=== PATIENT | female | born 1960 | race Caucasian/White ===

== ENCOUNTER 2022-08-13 11:52 | Outpatient (CLI) | payer OTHER, SELFPAY ==
[2022-08-13 10:09] LABS: Cholesterol* 196 mg/dL (90-199); Triglycerides* 223 mg/dL (40-149)
[2022-08-13 10:10] LABS: HDL Cholesterol* 41 mg/dL (>=50); LDL Cholesterol Calculated 110 mg/dL (<100)
[2022-08-13 20:33] LABS: Glucose* 113 mg/dL (60-115)
== END 2022-08-13 11:53 | disposition home or self-care (01) ==
PROVIDERS: PCP Internal Medicine; Visit Provider Internal Medicine
DX: Z00.00 Encounter for general adult medical examination without abnormal findings (principal); R73.03 Prediabetes; Z13.1 Encounter for screening for diabetes mellitus; Z13.6 Encounter for screening for cardiovascular disorders
CPT/HCPCS: 80061; 82947

== ENCOUNTER 2022-10-19 13:30 | Outpatient (CLI) | payer OTHER, SELFPAY ==
--- NOTE | 2022-10-19 13:40 | CRLHL7_ITS ---
For Patients: As a result of the Century Cures Act, medical imaging exams and procedure reports are released immediately into your electronic medical record. You may view this report before your referring provider. If you have questions, please contact your health care provider. BILATERAL SCREENING MAMMOGRAM WITH COMPUTER-AIDED DETECTION TECHNIQUE: CC and MLO views were obtained. These mammographic images have been obtained using full-field digital technique. These mammographic images were interpreted with the benefit of computer-aided detection. COMPARISON FILM: 03/19/21, 12/13/18, 06/11/16. FINDINGS: The breasts are almost entirely fatty IMPRESSION: There is no radiographic evidence for malignancy. ASSESSMENT: BI-RADS Category 1: Negative RECOMMENDATION: Routine screening mammogram in 1 year. A lay language report of this examination will be provided to the patient. Ab Sotelo M.D. Diagnostic Radiologist [email or web address] DEANA/Dictated by: Ab Sotelo MD @ 10/20/2022 8:38:00 AM (Electronically Signed)
== END 2022-10-19 13:31 | disposition home or self-care (01) ==
LOC: MAMMO 13:32
PROVIDERS: PCP Internal Medicine; Visit Provider Internal Medicine
DX: Z12.31 Encounter for screening mammogram for malignant neoplasm of breast (principal)
CPT/HCPCS: 77067

== ENCOUNTER 2023-09-16 07:35 | Outpatient (CLI) | payer OTHER, SELFPAY | END 2023-09-16 07:36 | disposition home or self-care (01) | LOC: NFLDREF 09-18 19:56 | PROVIDERS: Visit Provider Internal Medicine | DX: R73.03 Prediabetes (principal) | CPT/HCPCS: 82947 ==

== ENCOUNTER 2023-12-28 14:49 | Outpatient (CLI) | payer OTHER, SELFPAY ==
--- OUTSIDE RECORDS SUMMARY | 2023-12-28 14:52 | XMS_ITS ---
Author Name Unknown Organization [facility] Address [address] [place] [address] Care Team Providers Care Loading Shovel Oiler Name Role Phone Unavailable Unavailable Unavailable Surgery Details Not on file Complications Check Surgery Details section. Procedure Estimated Blood Loss Check Surgery Details section. Procedure Findings Check Surgery Details section. Procedure Specimens Taken Check Surgery Details section.
--- OUTSIDE RECORDS SUMMARY | 2023-12-28 14:52 | XMS_ITS | Clinical Summary ---
Author Name Unknown Organization [facility] Address [address] [place] [address] Care Team Providers Care Break Up Worker Name Role Phone Unavailable Primary Care Provider Unavailabl e Source Comments Patient records contain information from all sites at [facility]. For routine questions regarding patient records, call [phone] during business hours, M-F 8:00 AM - 5:00 PM Central Time. Record requests for emergency care only can be directed to [phone] at any time.[facility] Allergies No known active allergies Medications Medication Sig Dispensed Refills Start Date End Date Status albuterol (PROVENTIL HFA,VENTOLIN HFA) 90 mcg/actuation inhaler Inhale 2 puffs as needed. 0 Active fluticasone propionate (FLONASE) 50 mcg/actuation nasal spray Administer 1 spray into each nostril every morning. 0 Active mometasone (ASMANEX) 220 mcg/ actuation (14) inhaler Inhale 2 puffs 2 (two) times a day. Rinse mouth with water after use to reduce aftertaste and incidence of candidiasis. Do not swallow. 0 Active ibuprofen (ADVIL,MOTRIN) 200 mg tablet Take 200-400 mg by mouth as needed for pain. 0 Active cyanocobalamin (vitamin B-12) 1,000 mcg tablet Take 1,000 mcg by mouth once a week. 0 Active prednisoLONE acetate (PRED FORTE) 1 % ophthalmic suspension Into operative eye(s): 1 drop 3x day for 1 week 15 mL 0 11/01/2019 Active Additional Information Patient not taking.Reported on 12/11/2019 Active Problems Problem Noted Date Diagnosed Date Exotropia Alternating 07/19/2019 Overview: Added automatically from request for surgery [id number] Post Operative Nausea/Vomiting 11/29/2011 Overview: after eye surgery Asthma Encounters Date Type Department Care Team Description 09/28/2023 12:00 PM CDT - 09/28/2023 11:59 PM CDT Hospital Encounter Department of Laboratory Medicine and Pathology, [facility], in [place] [address] [place] [address] Mariano Young M.D. Clinical Research Exam Discharge Disposition: Home or Self Care 09/28/2023 11:30 AM CDT Office Visit Department of Neurology in [place] [address] [place] [address] Milagros Elizondo M.S.N., R.N., AGRICULTURAL ENGINEER-C Clinical Research Exam from Last 3 Months Social History Tobacco Use Types Packs/Day Years Used Date Smoking Tobacco: Never Smokeless Tobacco: Never Alcohol Use Standard Drinks/Week Comments Yes 1 (1 standard drink = 0.6 oz pur e alcohol) Social Connection and Isolat ion Panel [NHANES] Answer Date Recorded Frequency of Communication w ith Friends and Family Once a week 07/16/2019 Frequency of Social Gatherin gs with Friends and Family Once a week 07/16/2019 Attends Faith Services Never 07/16 Active Member of Clubs or Organizations Yes 07/16/2019 Attends Club or Organization Meetings More than 4 times per year 07/16/2019 Marital Status 07/16/2019 AUDIT-C Answer Date Recorded Frequency of Alcohol Consumption 2-4 times a wed07/16/2019 Average Number of Drinks 1 or 2 019 Frequency of Binge Drinking Never 06/29 Overall Financial Resource Strain (CARDIA) Answe r Date Recorded Difficulty of Paying Living Expenses Not very basurto rd 07/16/2019 [facility] [place] of Occupat ional Health - Occupational Stress Questionnaire Answer Date Recorded Feeling of Stress Only a little 07/16/2019 Exercise Vital Sign Answer Date Recorde d Days of Exercise per Week 4 days 2018 Minutes of Exercise per Session 40 min 07/16/2019 Hunger Vital Sign Answer Date Recorded Worried About Running Out of Food in the Last Ye ar Never true 07/16/2019 Ran Out of Food in the Last Year Never true 07/16/2019 PRAPARE - Transportation Answer Date Re corded Lack of Transportation (Medical) No 07/16/2019 Lack of Transportation (Non-Medical) No 07/16/2019 Nutrition Answer Date Recorded Nutrition: EVOO Fat Source Unknown 02/03 Nutrition: Servings of Fruits/Vegetables per Day Not on file 02/03/2021 Dental Answer Date Recorded Dental: Regular Dentist Unknown 02/05/20 21 Education Answer Date Recorded What is the highest level of school you have completed or the highest degree you have received? Professional school degree (e.g., MD, DDS, DVM, AMBER) 07/16/2019 Sex and Gender Information Value Date Recorded Sex Assigned at Female 10/30/2019 6:48 PM FRUIT AND VEGETABLE PACKER Gender Identity Female 07/16/2019 2:46 PM CDT Sexual Orientation Straight 07/16/2019 2: 46 PM CDT Last Filed Vital Signs Vital Sign Reading Time Taken Comments Blood Pressure 136/71 11/01/2019 6:15 PM FRUIT AND VEGETABLE PACKER Pulse 67 11/01/2019 6:35 PM FRUIT AND VEGETABLE PACKER Temperature 36.5 ??C (97.7 ??F) 11/01/2019 6:59 PM CS T Respiratory Rate 17 11/01/2019 5:45 PM FRUIT AND VEGETABLE PACKER Oxygen Saturation 97% 11/01/2019 6:35 PM FRUIT AND VEGETABLE PACKER Inhaled Oxygen Concentration - - Weight 71.8 kg (158 lb 4.6 oz) 11/01/2019 1:45 P M FRUIT AND VEGETABLE PACKER Height 156.5 cm (5' 1.61) 11/01/2019 1:45 PM CS T Body Mass Index 29.32 11/01/2019 1:45 PM FRUIT AND VEGETABLE PACKER Plan of Treatment Health Maintenance Due Date Last Done Comments CT Colonography 1959 Cologuard 1959 Colonoscopy 1959 Colorectal Cancer Screening 1959 FIT 1959 Fasting Glucose for Diabetes Screening 1959 HIV Screening 1959 Hepatitis C Screening 1959 Lipid (Cholesterol) Screening 1959 Mammogram 1959 Pneumococcal vaccine (0-64 y ears) (2 of 2 - PCV) 10/08/2015 10/08/2014 Depression Screening (Annual PHQ-2) 11/29/2023 Cervical Cancer Screening 02/26/2024 02/25/2021 DTaP,Tdap,and Td Vaccines (3 - Td or Tdap) 03/07/2028 03/07/2018, 11/17/2007 Zoster Vaccines Completed 11/21/2019, 08/01/2019 COVID-19 Vaccine Completed 09/20/2023, 09/2022, 03/16/2022, Additional history exists Influenza Vaccine Completed 09/20/2023, , 09/23/2021, Additional history exists Procedures Procedure Name Priority Date/Time Associated Diagnosis Comments [facility] [place], B Routine 09/28/2023 12:48 PM [facility] Clinical Research Exam from Last 3 Months Results * [facility] Research, Blood (09/28/2023 12:48 PM [facility]) Number of Specimens 1 09/28/2023 12:22 PM [facility] Blood (Blood, Venous) 09/28/2023 12:48 PM [facility] Mariano Young M.D. LAB RESEARCH NO RE SULT [facility] [address] [place] [address], [facility] [phone] [facility] [address] [place] [address] from Last 3 Months
--- OUTSIDE RECORDS SUMMARY | 2023-12-28 14:52 | XMS_ITS | Referral Summary ---
Author Name Unknown Organization [facility] Address [address] [place] [address] Care Team Providers Care Manager E Commerce Name Role Phone Unavailable Primary Care Provider Unavailabl e Source Comments Patient records contain information from all sites at [facility]. For routine questions regarding patient records, call [phone] during business hours, M-F 8:00 AM - 5:00 PM Central Time. Record requests for emergency care only can be directed to [phone] at any time.[facility] Encounters Date Type Department Care Team Description 09/28/2023 12:00 PM CDT - 09/28/2023 11:59 PM CDT Hospital Encounter Department of Laboratory Medicine and Pathology, [facility], in [place] [address] [place] [address] Mariano Young M.D. Clinical Research Exam Discharge Disposition: Home or Self Care 09/28/2023 11:30 AM CDT Office Visit Department of Neurology in [place] [address] [place] [address] Milagros Elizondo M.S.N., R.N., CANE FLUME CHUTE OPERATOR-C Clinical Research Exam from Last 3 Months Allergies No known active allergies Medications Medication [...] Overview: Added automatically from request for surgery [id number] Post Operative Nausea/Vomiting 11/29/2011 Overview: after eye surgery Asthma Social History Tobacco Use Types Packs/Day Years [...] and Family Once a week 07/16/2019 Attends Evangelical Services Never 07/16 Active Member of Clubs [...] Living Expenses Not very bas[address] 07/16/2019 [facility] [place] of Occupat ional Health - Occupational Stress [...] Sex Assigned at Female 10/30/2019 6:48 PM STRINGING MACHINE OPERATOR Gender Identity Female 07/16/2019 2:46 PM CDT Sexual Orientation Straight 07/16/2019 2: 46 PM CDT Last Filed Vital Signs Vital Sign Reading Time Taken Comments Blood Pressure 136/71 11/01/2019 6:15 PM STRINGING MACHINE OPERATOR Pulse 67 11/01/2019 6:35 PM STRINGING MACHINE OPERATOR Temperature 36.5 ??C (97.7 ??F) 11/01/2019 6:59 PM CS T Respiratory Rate 17 11/01/2019 5:45 PM STRINGING MACHINE OPERATOR Oxygen Saturation 97% 11/01/2019 6:35 PM STRINGING MACHINE OPERATOR Inhaled Oxygen Concentration - - Weight 71.8 kg (158 lb 4.6 oz) 11/01/2019 1:45 P M STRINGING MACHINE OPERATOR Height 156.5 cm (5' 1.61) 11/01/2019 1:45 PM CS T Body Mass Index 29.32 11/01/2019 1:45 PM STRINGING MACHINE OPERATOR Plan of Treatment Not on file Procedures Procedure Name Priority Date/Time Associated Diagnosis Comments [facility] [place], B Routine 09/28/2023 12:48 PM [facility] Clinical Research Exam from Last 3 Months Results * [facility] Research, Blood (09/28/2023 12:48 PM [facility]) Number of Specimens 1 09/28/2023 12:22 PM [facility] Blood (Blood, Venous) 09/28/2023 12:48 PM [facility] Mariano Young M.D. LAB RESEARCH NO NEEL [facility] [address] [place] [address], [facility] [phone] [facility] [address] [place] [address] from Last 3 Months
--- OUTSIDE RECORDS SUMMARY | 2023-12-28 14:52 | XMS_ITS | Encounter Summary ---
Author Name Unknown Organization [facility] Address [address] [place] [address] Care Team Providers Care Drawbridge Operator Name Role Phone Unavailable Primary Care Provider Unavailabl e Reason for Visit * Outpatient (Routine) - Closed Specialty Diagnoses / Procedures Referred By Contac t Referred To Contact Neurology Diagnoses Clinical Research Exam Mariano Young M.D. [address] [place] [address] Milagros Elizondo M.SJenna, R.N., TOY TRAINS AND ACCESSORIES SALESPERSON-C [address] [place] [address] Referral ID Status Reason Start Date Expiration Date Visits Re quested Visits Authorized [id number] Closed 07/08/2023 07/07/2026 1 1 Encounter Details Date Type Department Care Team (Late st Contact Info) Description 09/28/2023 11:30 AM CDT Office Visit Department of Neurology in [place], [place] [address] [place] [address] Milagros Elizondo M.SNikoleNNikole, R.N., TOY TRAINS AND ACCESSORIES SALESPERSON-C [address] [place] [address] Clinical Research Exam Social History Tobacco Use Types Packs/Day Years [...] and Family Once a week 07/16/2019 Attends Shinto Services Never 07/16 Active Member of Clubs [...] Living Expenses Not very bas[address] 07/16/2019 [facility] of Occupat ional Health - Occupational Stress [...] Sex Assigned at Female 10/30/2019 6:48 PM FBI SHARPSHOOTER Gender Identity Female 07/16/2019 2:46 PM CDT Sexual Orientation Straight 07/16/2019 2: 46 PM CDT documented as of this encounter Plan of Treatment Not on file documented as of this encounter Visit Diagnoses Diagnosis Clinical Research Exam documented in this encounter
--- OUTSIDE RECORDS SUMMARY | 2023-12-28 14:52 | XMS_ITS | Clinical Summary ---
Author Name Unknown Organization [facility] Address [place], [place] [address] Care Team Providers Care Freight Car Repairer Name Role Phone Pcp, No Primary Care Provider Unavailabl e Allergies No known active allergies Medications Medication Sig Dispensed Refills Start Date End Date Status MULTIVITAMIN TAB take 1 tablet by oral route once daily with food 0 11/17/2007 Active cholecalciferol (VITAMIN D) 1,000 unit tablet Take 1 tablet by mouth once daily. 0 07/31/2011 Active omega-3 fatty acids-vitamin E (FISH OIL) 1,000 mg Cap Take by mouth. 0 07/31/2011 Act halima albuterol (PROVENTIL; VENTOLIN) 90 mcg/actuation inhaler Inhale 2 Puffs by mouth every 4 hours if needed for Wheezing. 1 Inhaler 3 04/08/2012 Active fluticasone (50 mcg per actuation) nasal solution (FLONASE) 1-2 sprays in each nostril daily 1 Bottle 11 11/08/2013 Active FLOVENT HFA 110 mcg/actuation inhalerIndications:As thma, mild persistent INHALE 1-2 PUFFS BY MOUTH 2 TIMES DAILY. 12 g 0 11/25/2013 Active Active Problems Problem Noted Date Diagnosed Date Urinary, incontinence, stress female 03/02/2013 Strabismus 04/08/2012 Actinic keratoses 12/15/2011 History of melanoma 12/15/2011 Overview: left leg, age 17 Screen for colon cancer 04/10/2010 Overview: Colonoscopy 03/2010 normal repeat in 10 years Vitamin D deficiency 03/14/2010 Asthma, mild persistent Allergic rhinitis, cause unspecified Immunizations Name Administration Dates Next Due Influenza, IIV3 (Age >=3 years) 11/25/2013,12/23,07/31/2011,11/17/2007 Td (Age >=7 Years) 08/24/1996 Tdap 11/17/2007 Family History Medical History Relation Name Comments Other Father alzheimers Diabetes Mother pre diabetes Stroke Mother TIA Cancer Other grandfather--pe rhaps liver Relation Name Status Comments Father (Age 78) alzheimers Mother Alive Other Social History Tobacco Use Types Packs/Day Years Used Date Smoking Tobacco: Never Smokeless Tobacco: Never Tobacco Cessation:Counseling Given: Yes Alcohol Use Standard Drinks/Week Comments Yes 0 (1 standard drink = 0.6 oz pur e alcohol) occas Social Connections Answer Date Recorded Frequency of Communication with Friends and Fami ly Not on file 11/25/2021 Financial Resource Strain Answer Date R ecorded Difficulty of Paying Living Expenses Not on file 11/25/2021 Difficulty of Paying Living Expenses Not on file 11/25/2021 Sex and Gender Information Value Date Recorded Sex Assigned at Not on file Gender Identity Not on file Sexual Orientation Not on file Obstetrics History Last Filed Vital Signs Vital Sign Reading Time Taken Comments Blood Pressure 122/76 03/02/2013 1:02 PM CDT tow er Pulse 87 03/02/2013 1:02 PM CDT Temperature 36.7 ??C (98 ??F) 12/23/2012 12:37 PM GASKET NOTCHER Respiratory Rate - - Oxygen Saturation 100% 12/23/2012 12:37 PM GASKET NOTCHER Inhaled Oxygen Concentration - - Weight 79.4 kg (175 lb) 03/02/2013 1:02 PM CDT Height 155.5 cm (5' 1.22) 04/08/2012 3:38 PM CD T Body Mass Index 32.83 04/08/2012 3:38 PM CDT Plan of Treatment Health Maintenance Due Date Last Done Comments COVID-19 vaccine series (#1) 1959 Depression screening for age 12+ 1971 HIV for age 15-65 1974 BMI (ht and wt on same day) for age 18+ 1977 Hepatitis C screening for age 18-79 1977 Zoster (shingles) series for age 50+ (1 of 2) 2009 Mammogram for age 45-75 12/26/2013 12/26/19 13, 08/11/2011, 03/20/2010, Additional history exists Lipids for age 45-75 08/12/2016 08/12/2011, 03/13/2010, 11/25/2007 Tetanus booster 11/17/2017 11/17/2007, 08/24/1996 Colonoscopy through age 75 04/10/202004/10, 04/10/2010, 04/10/2010 Influenza for age 50-64 07/30/2023 11/25/20 13, 12/23/2012, 07/31/2011, Additional history exists Pap test for age 21-65 02/26/2024 , 02/25/2021, 10/08/2014, Additional history exists Tdap Completed 11/17/2007 Pneumococcal series for age 6-64 Aged Out No longer eligible based on patient's age to complete this topic Care Teams Freight Car Repairer Relationship Specialty Start Date End Date Pcp, No . PCP - General 12/25/13
--- OUTSIDE RECORDS SUMMARY | 2023-12-28 14:52 | XMS_ITS | Encounter Summary ---
Author Name Unknown Organization [facility] Address [address] [place] [address] Care Team Providers Care Community Education Specialist Name Role Phone Unavailable Primary Care Provider Unavailabl e Encounter Details Date Type Department Care Team (Latest Contact Info) Description 09/28/2023 12:00 PM CDT - 09/28/2023 11:59 PM CDT Hospital Encounter Department of Laboratory Medicine and Pathology, [facility], in [place], [place] [address] [place] [address] Mariano Young M.D. [address] [place] [address] Clinical Research Exam Discharge Disposition: Home or Self Care Social History Tobacco Use Types Packs/Day Years [...] and Family Once a week 07/16/2019 Attends Sabianism Services Never 07/16 Active Member of Clubs [...] Living Expenses Not very bas[address] 07/16/2019 [facility] [place] of Occupat ional Health - Occupational Stress [...] Sex Assigned at Female 10/30/2019 6:48 PM PATIENT EXPERIENCE COORDINATOR Gender Identity Female 07/16/2019 2:46 PM CDT Sexual Orientation Straight 07/16/2019 2: 46 PM CDT documented as of this encounter Medications at Time of Discharge Medication Sig Dispensed Refills Start Date End Date albuterol (PROVENTIL HFA,VENTOLIN HFA) 90 mcg/actuation inhaler Inhale 2 puffs as needed. 0 cyanocobalamin (vitamin B-12) 1,000 mcg tablet Take 1,000 mcg by mouth once a week. 0 fluticasone propionate (FLONASE) 50 mcg/actuation nasal spray Administer 1 spray into each nostril every morning. 0 ibuprofen (ADVIL,MOTRIN) 200 mg tablet Take 200-400 mg by mouth as needed for pain. 0 mometasone (ASMANEX) 220 mcg/ actuation (14) inhaler Inhale 2 puffs 2 (two) times a day. Rinse mouth with water after use to reduce aftertaste and incidence of candidiasis. Do not swallow. 0 prednisoLONE acetate (PRED FORTE) 1 % ophthalmic suspension Into operative eye(s): 1 drop 3x day for 1 week 15 mL 0 11/01/2019 documented as of this encounter Plan of Treatment Not on file documented as of this encounter Procedures Procedure Name Priority Date/Time Associated Diagnosis Comments [facility] RESEARCH ORDER, B Routine 09/28/2023 12:48 PM [facility] Clinical Research Exam documented in this encounter Results * [facility] Research, Blood (09/28/2023 12:48 PM [facility]) Number of Specimens 1 09/28/2023 12:22 PM [facility] Blood (Blood, Venous) 09/28/2023 12:48 PM [facility] Mariano Young M.D. LAB RESEARCH NO RE SULT ROUTING [facility] [address] [place] [address], [facility] [phone] [facility] [address] [place] [address] documented in this encounter Visit Diagnoses Diagnosis Clinical Research Exam documented in this encounter
--- OUTSIDE RECORDS SUMMARY | 2023-12-28 14:52 | XMS_ITS | Encounter Summary ---
Author Name Unknown Organization [facility] Address [address] [place] [address] Care Team Providers Care Elastic Yarn Twister Name Role Phone Unavailable Primary Care Provider Unavailabl e Encounter Details Date Type Department Care Team (Late st Contact Info) Description 02/05/2017 Historical Ophthalmology [facility] Prasanna Prater M.D. [address] [place] [address] Social History Tobacco Use Types Packs/Day Years Used Date Smoking Tobacco: Never Assessed Sex and Gender Information Value Date Recorded Sex Assigned at Female 10/30/2019 6:48 PM CAN CARRIER Gender Identity Female 07/16/2019 2:46 PM CDT Sexual Orientation Straight 07/16/2019 2: 46 PM CDT documented as of this encounter Progress Notes * Prasanna Prater M.D. - 02/05/2017 8:19 AM CST Eye General CHIEF COMPLAINT right eye wandering out HISTORY OF PRESENT ILLNESS 56 year old female here for right eye wandering out, has had 4 previous muscle surgeries, last one being in 2011. Double vision, constant, even with prism in glasses, images side by side, right imageslightly lower. Vision is more blurry in right eye. Closing one eye vision is single. She gets headaches from clenching jaw. AK: history of 4 strabismus surgeries. First surgery was in [place] at age 1, at age 3 and 5 patient had 2 strabismus surgeries in [place], [place]. EDB: The last strabismus surgery 03/2012 with Angeline Azevedo at [facility] for a 5-7 year esotropia shift. Exotropia happened soon after adjustable suture and healing and has stayed that way. Double vision is present most all the time and even in prism however with effort, fusion is obtained. With the current setting, double vision is being managed but is not ideal. IMPRESSION / REPORT / PLAN #1 Consecutive Exotropia s/p strabismus surgery at age 1 in [facility] s/p strabismus surgery at age 3 and 5 in [place] s/p strabismus surgery 2012-Dr. Azevedo [facility] It is difficult to determine the location of the muscles on the right eye. I do believe the left lateral remains recessed. The limited adduction in both eyes suggest either abnormality in the insertion of the medial rectus muscles or some restriction to the laterals. I discussed the current condition with Mrs. Costa and the option for more surgery either now or in the future. I would suspect a unilateral or bilateral medial rectus advancement is warranted. One option is to only approach theleft medial, potentially coming back on the right eye if it recurred again. The reason that is attractive is to not disrupt the scar tissue that is worse on the right eye from prior surgery. In either case, I do think that strabismus surgery could play a role but might consider watching the currentsituation longer. Mrs. Costa seems satisfied with that approach and will likely proceed with surgery if the angle of deviation gets more. I discussed the benefits, risks, and alternatives to strabismus surgery for the patient. The indications and benefits included the hope for improved binocularity and motor alignment. The risks included continued strabismus and need for more surgery (approximately 1 in 4 (25%)), diplopia (in primaryor other gazes), difficulties in healing including bleeding, infection and inflammation, and remotechange of severe injury to the eye or health. Risk of vision loss shared at 1 in 5,000. The typicalsurgery day schedule and postop expectations were shared. Follow up was suggested in 6 - 12 months to assess stability. Monitor the patient's vision and eye alignment and appearance until the next clinic visit. If new concerns arise please contact the [facility] Department of Ophthalmology to discuss the situation ormove up the return appointment. DIAGNOSIS #1 Consecutive Exotropia CDM Reports - EYEGEN Id: [id number] Status: Fnl documented in this encounter Plan of Treatment Not on file documented as of this encounter Visit Diagnoses Not on filedocumented in this encounter
--- NOTE | 2023-12-28 15:00 | CRLHL7_ITS ---
For Patients: As a result of the Century Cures Act, medical imaging exams and procedure reports are released immediately into your electronic medical record. You may view this report before your referring provider. If you have questions, please contact your health care provider. BILATERAL SCREENING MAMMOGRAM WITH COMPUTER-AIDED DETECTION AND TOMOSYNTHESIS TECHNIQUE: CC and MLO views were obtained. These mammographic images have been obtained using full-field digital technique. These mammographic images were interpreted with the benefit of computer-aided detection. Breast Tomosynthesis was used in this interpretation. COMPARISON FILM: 10/19/22, 03/19/21, 12/13/18. FINDINGS: There are scattered areas of fibroglandular density. IMPRESSION: There is no radiographic evidence for malignancy. ASSESSMENT: BI-RADS Category 1: Negative RECOMMENDATION: Routine screening mammogram in 1 year. A lay language report of this examination will be provided to the patient. Ab Sotelo M.D. Diagnostic Radiologist [email or web address] SP/Dictated by: Ab Sotelo MD @ 12/29/2023 1:43:00 PM (Electronically Signed)
== END 2023-12-28 14:50 | disposition home or self-care (01) ==
LOC: MAMMO 14:50
PROVIDERS: Visit Provider Internal Medicine
DX: Z12.31 Encounter for screening mammogram for malignant neoplasm of breast (principal)
CPT/HCPCS: 77063; 77067

== ENCOUNTER 2024-01-06 10:36 | Outpatient (CLI) | payer OTHER, SELFPAY ==
--- OUTSIDE RECORDS SUMMARY | 2024-01-06 10:39 | XMS_ITS | Encounter Summary ---
Author Name Unknown Organization [facility] Address [address] [place] [address] Care Team Providers Care Electrotype Servicer Name Role Phone Unavailable Primary Care Provider Unavailabl e Encounter Details Date Type Department Care Team (Latest Contact Info) Description 09/28/2023 12:00 PM CDT - 09/28/2023 11:59 PM CDT Hospital Encounter Department of Laboratory Medicine and Pathology, [facility], in [place], [place] [address] [place] [address] Mariano Young M.D. [address] [place] [address] Clinical Research Exam Discharge Disposition: [...] and Family Once a week 07/16/2019 Attends Gnosticist Services Never 07/16 Active Member of Clubs [...] Living Expenses Not very [address] 07/16/2019 [facility] of Occupat ional Health - Occupational Stress [...] Sex Assigned at Female 10/30/2019 6:48 PM SURVEYING TEACHER Gender Identity Female 07/16/2019 2:46 PM CDT [...] Procedure Name Priority Date/Time Associated Diagnosis Comments [facility] RESE[facility] ORDER, B Routine 09/28/2023 12:48 PM [facility] Clinical Research Exam documented in this encounter Results * [facility] Research, Blood (09/28/2023 12:48 PM [facility]) Number of Specimens 1 09/28/2023 12:22 PM [facility] Blood (Blood, Venous) 09/28/2023 12:48 PM [facility] Mariano Young M.D. LAB RESEARCH NO RE SULT ROUTING [facility] [address] [place] [address], [facility] [phone] [facility] [address] [place] [address] documented in this encounter Visit Diagnoses Diagnosis Clinical Research Exam documented in this encounter
--- OUTSIDE RECORDS SUMMARY | 2024-01-06 10:39 | XMS_ITS | Encounter Summary ---
Author Name Unknown Organization [facility] Address [address] [place] [address] Care Team Providers Care Safety Director Name Role Phone Unavailable Primary Care Provider Unavailabl e Encounter Details Date Type Department Care Team (Late st Contact Info) Description 02/05/2017 Historical Ophthalmology RST OPH Prasanna Prater M.D. [address] [place] [address] Social History Tobacco Use Types Packs/Day Years Used Date Smoking Tobacco: Never Assessed Sex and Gender Information Value Date Recorded Sex Assigned at Female 10/30/2019 6:48 PM DIVERSITY SPECIALIST Gender Identity Female 07/16/2019 2:46 PM CDT [...] 6 patient had 2 strabismus surgeries in [place], [place]. EDB: The last strabismus surgery 03/2012 with Angeline Azevedo at [facility] for a 5-7 year esotropia shift. Exotropia [...] s/p strabismus surgery at age 1 in [facility] s/p strabismus surgery at age 3 and 5 in [place] s/p strabismus surgery 2012-Dr. Azevedo [facility] It is difficult to determine the location [...] If new concerns arise please contact the [facility] Department of Ophthalmology to discuss the situation ormove up the return appointment. DIAGNOSIS #1 Consecutive Exotropia CDM Reports - EYEGEN Id: [id number] Status: Fnl documented in this encounter Plan of Treatment Not on file documented as of this encounter Visit Diagnoses Not on filedocumented in this encounter
--- OUTSIDE RECORDS SUMMARY | 2024-01-06 10:39 | XMS_ITS | Referral Summary ---
Author Name Unknown Organization [facility] Address [address] [place] [address] Care Team Providers Care Firmware Developer Name Role Phone Unavailable Primary Care Provider Unavailabl e Source Comments Patient records contain information from all sites at [facility]. For routine questions regarding patient records, call [phone] during business hours, M-F 8:00 AM - 5:00 PM Central Time. Record requests for emergency care only can be directed to [phone] at any time.[facility] Allergies No known active allergies Medications Medication [...] Overview: Added automatically from request for surgery [id number] Post Operative Nausea/Vomiting 11/29/2011 Overview: after eye [...] and Family Once a week 07/16/2019 Attends Congregational Services Never 07/16 Active Member of Clubs [...] Living Expenses Not very [address] 07/16/2019 [facility] [place] of Occupat ional Health - Occupational Stress [...] Sex Assigned at Female 10/30/2019 6:48 PM FISCAL ACCOUNTANT Gender Identity Female 07/16/2019 2:46 PM CDT Sexual Orientation Straight 07/16/2019 2: 46 PM CDT Last Filed Vital Signs Vital Sign Reading Time Taken Comments Blood Pressure 136/71 11/01/2019 6:15 PM FISCAL ACCOUNTANT Pulse 67 11/01/2019 6:35 PM FISCAL ACCOUNTANT Temperature 36.5 ??C (97.7 ??F) 11/01/2019 6:59 PM CS T Respiratory Rate 17 11/01/2019 5:45 PM FISCAL ACCOUNTANT Oxygen Saturation 97% 11/01/2019 6:35 PM FISCAL ACCOUNTANT Inhaled Oxygen Concentration - - Weight 71.8 kg (158 lb 4.6 oz) 11/01/2019 1:45 P M FISCAL ACCOUNTANT Height 156.5 cm (5' 1.61) 11/01/2019 1:45 PM CS T Body Mass Index 29.32 11/01/2019 1:45 PM FISCAL ACCOUNTANT Plan of Treatment Not on file
--- OUTSIDE RECORDS SUMMARY | 2024-01-06 10:39 | XMS_ITS | Clinical Summary ---
Author Name Unknown Organization [facility] Address [place], [place] [address] Care Team Providers Care Test Desk Trouble Locator Name Role Phone Pcp, No Primary Care [...] 36.7 ??C (98 ??F) 12/23/2012 12:37 PM GROUP LEADER SEMICONDUCTOR TESTING Respiratory Rate - - Oxygen Saturation 100% 12/23/2012 12:37 PM GROUP LEADER SEMICONDUCTOR TESTING Inhaled Oxygen Concentration - - Weight 79.4 [...] age to complete this topic Care Teams Test Desk Trouble Locator Relationship Specialty Start Date End Date Pcp, No . PCP - General 12/25/13
--- OUTSIDE RECORDS SUMMARY | 2024-01-06 10:39 | XMS_ITS | Encounter Summary ---
Author Name Unknown Organization [facility] Address [address] [place] [address] Care Team Providers Care Bariatric Surgeon Name Role Phone Unavailable Primary Care Provider Unavailabl e Reason for Visit * Outpatient (Routine) - Closed Specialty Diagnoses / Procedures Referred By Contac t Referred To Contact Neurology Diagnoses Clinical Research Exam Mariano Young M.D. [address] [place] [address] Milagros Elizondo M.SJenan, R.N., GEAR NICKER-C [address] [place] [address] Referral ID Status Reason Start Date Expiration Date Visits Re quested Visits Authorized [id number] Closed 07/08/2023 07/07/2026 1 1 Encounter Details Date Type Department Care Team (Late st Contact Info) Description 09/28/2023 11:30 AM CDT Office Visit Department of Neurology in [place], [place] [address] [place] [address] Milagros Elizondo M.SNikoleNNikole, R.N., GEAR NICKER-C [address] [place] [address] Clinical Research Exam Social History [...] and Family Once a week 07/16/2019 Attends Hoahaoism Services Never 07/16 Active Member of Clubs [...] Living Expenses Not very [address] 07/16/2019 [facility] of Occupat ional Health - Occupational [...] Sex Assigned at Female 10/30/2019 6:48 PM RAILROAD HAND Gender Identity Female 07/16/2019 2:46 PM CDT Sexual Orientation Straight 07/16/2019 2: 46 PM CDT documented as of this encounter Plan of Treatment Not on file documented as of this encounter Visit Diagnoses Diagnosis Clinical Research Exam documented in this encounter
--- OUTSIDE RECORDS SUMMARY | 2024-01-06 10:39 | XMS_ITS ---
Author Name Unknown Organization [facility] Address [address] [place] [address] Care Team Providers Care Junior Account Manager Name Role Phone Unavailable Unavailable Unavailable Surgery Details Not on file Complications Check Surgery Details section. Procedure Estimated Blood Loss Check Surgery Details section. Procedure Findings Check Surgery Details section. Procedure Specimens Taken Check Surgery Details section.
--- OUTSIDE RECORDS SUMMARY | 2024-01-06 10:39 | XMS_ITS | Clinical Summary ---
Author Name Unknown Organization [facility] Address [address] [place] [address] Care Team Providers Care Scrubbing Machine Operator Name Role Phone Unavailable Primary Care Provider Unavailabl e Source Comments Patient records contain information from all sites at [facility]. For routine questions regarding patient records, call [phone] during business hours, M-F 8:00 AM - 5:00 PM Central Time. Record requests for emergency care only can be directed to [phone] at any time.[facility] Allergies No known active allergies Medications [...] Overview: Added automatically from request for surgery [id number] Post Operative Nausea/Vomiting 11/29/2011 Overview: after eye [...] and Family Once a week 07/16/2019 Attends Latter-Day Services Never 07/16 Active Member of Clubs [...] Living Expenses Not very [address] 07/16/2019 [facility] of Occupat ional Health - Occupational Stress [...] Sex Assigned at Female 10/30/2019 6:48 PM CASTING REPAIRER Gender Identity Female 07/16/2019 2:46 PM CDT Sexual Orientation Straight 07/16/2019 2: 46 PM CDT Last Filed Vital Signs Vital Sign Reading Time Taken Comments Blood Pressure 136/71 11/01/2019 6:15 PM CASTING REPAIRER Pulse 67 11/01/2019 6:35 PM CASTING REPAIRER Temperature 36.5 ??C (97.7 ??F) 11/01/2019 6:59 PM CS T Respiratory Rate 17 11/01/2019 5:45 PM CASTING REPAIRER Oxygen Saturation 97% 11/01/2019 6:35 PM CASTING REPAIRER Inhaled Oxygen Concentration - - Weight 71.8 kg (158 lb 4.6 oz) 11/01/2019 1:45 P M CASTING REPAIRER Height 156.5 cm (5' 1.61) 11/01/2019 1:45 PM CS T Body Mass Index 29.32 11/01/2019 1:45 PM CASTING REPAIRER Plan of Treatment Health Maintenance Due Date [...]
== END 2024-01-06 10:37 | disposition home or self-care (01) ==
LOC: NFLDREF 10:37
PROVIDERS: PCP Internal Medicine; Visit Provider Internal Medicine
DX: R20.2 Paresthesia of skin (principal); R73.03 Prediabetes
CPT/HCPCS: 82607

== ENCOUNTER 2024-11-03 07:46 | Outpatient (CLI) | payer MEDICARE, BC, SELFPAY ==
--- OUTSIDE RECORDS SUMMARY | 2024-11-07 08:21 | XMS_ITS | Encounter Summary ---
Author Organization [facility] Address [address] [place] [address] Care Team Providers Care Mission Coordinator Name Role Phone Unavailable Primary Care Provider Unavailabl e Encounter Details Date Type Department Care Team (Late st Contact Info) Description 02/05/2017 Historical Ophthalmology RST OPH Prasanna Prater M.D. [address] [place] [address] Social History Tobacco Use Types Packs/Day Years Used Date Smoking Tobacco: Never Assessed Comments Unknown Sex and Gender Information Value Date Recorded Sex Assigned at Female 10/30/2019 6:48 PM AIRPLANE PATROLLER Legal Sex Female 8:10 AM AIRPLANE PATROLLER Gender Identity Female 07/16/2019 2:46 PM CDT [...] 6 patient had 2 strabismus surgeries in [place], [place]. EDB: The last strabismus surgery 03/2012 with Angeline Azevedo at [facility] for a 5-7 year esotropia shift. Exotropia [...] s/p strabismus surgery at age 1 in [facility] s/p strabismus surgery at age 3 and 5 in [place] s/p strabismus surgery 2011-Dr. Azevedo [facility] It is difficult to determine the location [...] If new concerns arise please contact the [facility] Department of Ophthalmology to discuss the situation ormove up the return appointment. DIAGNOSIS #1 Consecutive Exotropia CDM Reports - EYEGEN Id: [id number] Status: Fnl documented in this encounter Plan of Treatment Not on file documented as of this encounter Visit Diagnoses Not on filedocumented in this encounter
--- OUTSIDE RECORDS SUMMARY | 2024-11-07 08:21 | XMS_ITS | Clinical Summary ---
Author Organization [facility] Address [address] [place] [address] Care Team Providers Care Musical String Maker Name Role Phone Unavailable Primary Care Provider Unavailabl e Source Comments Patient records contain information from all sites at [facility]. For routine questions regarding patient records, call [phone] during business hours, M-F 8:00 AM - 5:00 PM Central Time. Record requests for emergency care only can be directed to [phone] at any time.[facility] Allergies No known active allergies Medications * This document contains information received from the source organization and may not represent a complete record from that organization. albuterol (PROVENTIL HFA,VENTOLIN HFA) 90 mcg/actuation inhaler Inhale 2 puffs as needed. Active fluticasone propionate (FLONASE) 50 mcg/actuation nasal spray Administer 1 spray into each nostril every morning. Active mometasone (ASMANEX) 220 mcg/ actuation (14) inhaler Inhale 2 puffs 2 (two) times a day. Rinse mouth with water after use to reduce aftertaste and incidence of candidiasis. Do not swallow. Active ibuprofen (ADVIL,MOTRIN) 200 mg tablet Take 200-400 mg by mouth as needed for pain. Active cyanocobalamin (vitamin B-12) 1,000 mcg tablet Take 1,000 mcg by mouth once a week. Active prednisoLONE acetate (PRED FORTE) 1 % ophthalmic suspension Into operative eye(s): 1 drop 3x day for 1 week 15 mL 9 Active Additional Information Patient not taking.Reported on 12/11/2019 Active Problems Problem Noted Date Diagnosed Date Exotropia Alternating 07/19/2019 Overview (07/19/2019): Added automatically from request for surgery [id number] Post Operative Nausea/Vomiting 11/29/2011 Overview (10/31/2019): after eye surgery Asthma Social History Tobacco [...] and Family Once a week 07/16/2019 Attends Sikh Services Never 07/16 Active Member of Clubs [...] Living Expenses Not very [address] 07/16/2019 [facility] of Occupat ional Health - Occupational [...] Date Recorded Dental: Regular Dentist Unknown 02/05/20 Education Answer Date Recorded What is the highest level of school you have completed or the highest degree you have received? Professional school degree (e.g., MD, DDS, DVM, AMBER) 07/16/2019 Comments No Sex and Gender Information Value Date Recorded Sex Assigned at Female 10/30/2019 6:48 PM CHALK TESTER Legal Sex Female 8:10 AM CHALK TESTER Gender Identity Female 07/16/2019 2:46 PM CDT Sexual Orientation Straight 07/16/2019 2: 46 PM CDT Last Filed Vital Signs Vital Sign Reading Time Taken Comments Blood Pressure 136/71 11/01/2019 6:15 PM CHALK TESTER Pulse 67 11/01/2019 6:35 PM CHALK TESTER Temperature 36.5 C (97.7 F) 11/01/2019 6:59 PM CHALK TESTER Respiratory Rate 17 11/01/2019 5:45 PM CHALK TESTER Oxygen Saturation 97% 11/01/2019 6:35 PM CHALK TESTER Inhaled Oxygen Concentration - - Weight 71.8 kg (158 lb 4.6 oz) 11/01/2019 1:45 P M CHALK TESTER Height 156.5 cm (5' 1.61) 11/01/2019 1:45 PM CS T Body Mass Index 29.32 11/01/2019 1:45 PM CHALK TESTER Plan of Treatment Health Maintenance Due Date Last Done Comments Bone Density Scan (Osteoporosis Screen) 1959 CT Colonography 1959 Cologuard 1959 Colonoscopy 1959 Colorectal Cancer Screening 1959 FIT 1959 Fasting Glucose for Diabetes Screening 1959 HIV Screening 1959 Hepatitis C Screening 1959 Mammogram 1959 Pneumococcal vaccine (65+ years) (2 of 2 - PCV) 10/08/2015 10/08/2014 Depression Screening (Annual PHQ-2) 11/29/2023 Cervical/Vaginal Cancer Screening 02/26/2024 02/25/2021 Fall Risk Screen (Annual) 2024 COVID-19 Vaccine ( season) 2024 09/20/2023, 09/08/2022, 03/16/2022, Additional history exists Influenza Vaccine (#1) 2024 , 09/08/2022, 09/23/2021, Additional history exists DTaP,Tdap,and Td Vaccines (3 - Td or Tdap) 03/07/2028 03/07/2018, 11/17/2007 Zoster Vaccines Completed 11/21/2019, 08/01/2019 IPV Vaccines Aged Out No longer eligi ble based on patient's age to complete this topic
--- OUTSIDE RECORDS SUMMARY | 2024-11-07 08:21 | XMS_ITS | Referral Summary ---
Author Organization [facility] Address [address] [place] [address] Care Team Providers Care Hvac Technician Residential Name Role Phone Unavailable Primary Care Provider Unavailabl e Source Comments Patient records contain information from all sites at [facility]. For routine questions regarding patient records, call [phone] during business hours, M-F 8:00 AM - 5:00 PM Central Time. Record requests for emergency care only can be directed to [phone] at any time.[facility] Allergies No known active allergies Medications * [...] (07/19/2019): Added automatically from request for surgery [id number] Post Operative Nausea/Vomiting 11/29/2011 Overview (10/31/2019): after [...] and Family Once a week 07/16/2019 Attends [employer] [facility] Never 07/16 Active Member of Clubs [...] Living Expenses Not very [address] 07/16/2019 [facility] of Occupat ional Health - Occupational Stress [...] Sex Assigned at Female 10/30/2019 6:48 PM DIRECTOR OF SPECIAL EDUCATION Legal Sex Female 8:10 AM DIRECTOR OF SPECIAL EDUCATION Gender Identity Female 07/16/2019 2:46 PM CDT Sexual Orientation Straight 07/16/2019 2: 46 PM CDT Last Filed Vital Signs Vital Sign Reading Time Taken Comments Blood Pressure 136/71 11/01/2019 6:15 PM DIRECTOR OF SPECIAL EDUCATION Pulse 67 11/01/2019 6:35 PM DIRECTOR OF SPECIAL EDUCATION Temperature 36.5 C (97.7 F) 11/01/2019 6:59 PM DIRECTOR OF SPECIAL EDUCATION Respiratory Rate 17 11/01/2019 5:45 PM DIRECTOR OF SPECIAL EDUCATION Oxygen Saturation 97% 11/01/2019 6:35 PM DIRECTOR OF SPECIAL EDUCATION Inhaled Oxygen Concentration - - Weight 71.8 kg (158 lb 4.6 oz) 11/01/2019 1:45 P M DIRECTOR OF SPECIAL EDUCATION Height 156.5 cm (5' 1.61) 11/01/2019 1:45 PM CS T Body Mass Index 29.32 11/01/2019 1:45 PM DIRECTOR OF SPECIAL EDUCATION Plan of Treatment Not on file
--- OUTSIDE RECORDS SUMMARY | 2024-11-07 08:21 | XMS_ITS | Clinical Summary ---
Author Organization [employer] [facility] Address [place], [place] [address] Care Team Providers Care Hand Packager Name Role Phone Pcp, No Primary Care Provider Unavailabl e Allergies No known active allergies Medications MULTIVITAMIN TAB take 1 tablet by oral route once daily with food 0 11/17/2007 Active cholecalciferol (VITAMIN D) 1,000 unit tablet Take 1 tablet by mouth once daily. 0 07/31/2011 Active omega-3 fatty acids-vitamin E (FISH OIL) 1,000 mg Cap Take by mouth. 0 07/31/2011 Active albuterol (PROVENTIL; VENTOLIN) 90 mcg/actuation inhaler Inhale 2 Puffs by mouth every 4 hours if needed for Wheezing. 1 Inhaler 3 04/08/2012 Active fluticasone (50 mcg per actuation) nasal solution (FLONASE) 1-2 sprays in each nostril daily 1 Bottle 11 11/08/2013 Active FLOVENT HFA 110 mcg/actuation inhalerIndicati ons:Asthma, mild persistent INHALE 1-2 PUFFS BY MOUTH 2 TIMES DAILY. 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, residential leasing manager Not on file Not on file Not on file Obstetrics History Last Filed Vital Signs Vital Sign Reading Time Taken Comments Blood Pressure 122/76 03/02/2013 1:02 PM CDT tow er Pulse 87 03/02/2013 1:02 PM CDT Temperature 36.7 C (98 F) 12/23/2012 12:37 PM MENTAL HEALTH CONSULTANT Respiratory Rate - - Oxygen Saturation 100% 12/23/2012 12:37 PM MENTAL HEALTH CONSULTANT Inhaled Oxygen Concentration - - Weight 79.4 kg (175 lb) 03/02/2013 1:02 PM CDT Height 155.5 cm (5' 1.22) 04/08/2012 3:38 PM CD T Body Mass Index 32.83 04/08/2012 3:38 PM CDT Plan of Treatment Health Maintenance Due Date Last Done Comments Depression screening for age 12+ 1971 HIV for age 15-65 1974 BMI (ht and wt on same day) for age 18+ 1977 Hepatitis C screening for ag e 18-79 1977 Zoster (shingles) series for age 50+ (1 of 2) 2009 Mammogram for age 45-75 12/26/2013 12/26/19 13, 08/11/2011, 03/20/2010, Additional history exists Lipids for age 45-75 08/12/2016 08/12/2011, 03/13/2010, 11/25/2007 Tetanus booster 11/17/2017 11/17/2007, 08/24/1996 Colonoscopy through age 75 04/10/202004/10, 04/10/2010, 04/10/2010 Pap test for age 21-65 02/26/2024 , 02/25/2021, 10/08/2014, Additional history exists DEXA/DXA scan for age 65+ 2024 Pneumococcal series for age 65+ (1 of 1 - PCV) 2024 COVID-19 vaccine series ( - 2023- season) 2024 Influenza for age 65+ 07/30/2024 11/25/2013 , 12/23/2012, 07/31/2011, Additional history exists RSV vaccine for adults or (1 - 1-dose 75+ series) 2034 Tdap Completed 11/17/2007 Procedures Procedure Name Priority Date/Time Associated Diagnosis Comments CAMOUFLAGE ASSEMBLER THIN PREP PAP SCREEN IMAGED Routine 02/25/2021 10:00 AM CDT XR MAMMO BILAT SCREEN FFDM (IA) Routine 12/26/2012 4:42 PM MENTAL HEALTH CONSULTANT Other screening mammogram LIPID PANEL W REFLEX MEASURED LDL Routine 08/12/2011 7:50 AM CDT Lipid disorder from Last 3 Months or Most Recently Relevant to Health Maintenance Results * CAMOUFLAGE ASSEMBLER THIN PREP PAP SCREEN IMAGED (02/25/2021 10:00 AM CDT) Case Report Gynecologic Cytology Report Case: [id number] Authorizing Provider: Dayanna Tavarez MD Collected: 02/25/2021 1000 Ordering Location: [facility] Received: 02/26/2021 1143 First Screen: Colin Velázquez Specimen: CAMOUFLAGE ASSEMBLER ThinPrep Vial Screening, Cervical/Vaginal 03/08/2021 11:28 AM CDT [facility] INTERPRETATION/ RESULT NEGATIVE FOR INTRAEPITHELIAL LESION OR MALIGNANCY (NIL) (none) 03/08/2021 11:28 AM CDT [facility] IMEN ADEQUACY Satisfactory for evaluation No endocervical component seen 03/08/2021 11:28 AM CDT [facility] HPV REQUEST HPV and PAP 03/08/2021 11:28 AM CDT [facility] Date of LMP 03/08/2021 11:28 AM CDT [facility] Comment:2019 Last Pap Date 10/08/2014 03/08/2021 11:28 AM CDT [facility] Last Pap Result 11:28 AM CDT [facility] Comment:Satisfactory Menstrual Status 03/08/2021 11:28 AM CDT [facility] Comment:Menopause Additional Information Unable to see cervix 03/08/2021 11:28 AM CDT [facility] Comment: Interpreted at [facility] [employer] [facility] Laboratory - [address], [place] [address] Automated Review Successful 03/08/2021 11:28 AM T [facility] Comment:Specimen processed s uccessfully by automated radio engineering teacher device, ThinPrep Imaging System, [employer] ANCILLARY TESTING CAMOUFLAGE ASSEMBLER HPV Ordered, Please see separate report 03/08/2021 11:28 AM T [facility] Note The pap test is a screening technique, not a diagnostic procedure. It is used primarily to screen for squamous cancers and precursor lesions. Published studies have shown that it is subject to both false negative and false positive results. The pap test should not be used as the sole means to diagnose or exclude pre-malignant and malignant lesions. 03/08/2021 11:28 AM CDT [facility] Other (Cervical/Vagina l) 02/25/2021 10:00 AM CDT 02/26/2021 11:43 AM CDT us Dayanna Tavarez MD PATHOLOGY/CYTOLOGY Final R esult [facility] [address] [place] [address], [place] * XR MAMMO BILAT SCREEN FFDM (12/26/2012 4:42 PM MENTAL HEALTH CONSULTANT) Anatomical Region Laterality Modality BREASTS, Breast Left, Breast Right Bilateral Mammography Impressions 12/27/2012 12:09 PM MENTAL HEALTH CONSULTANT There is no radiographic evidence for malignancy. Recommend annual mammograms. A lay language report of this examination will be provided to the patient. MAMMOGRAM ASSESSMENT: ACR 1 Negative Narrative 12/27/2012 12:09 PM MENTAL HEALTH CONSULTANT XR MAMMO BILAT SCREEN FFDM [G0202.0] CLINICAL HISTORY: This is an asymptomatic 52 y.o. patient. INDICATION FOR EXAM: Mammogram Screening. TECHNIQUE: CC & MLO views were obtained. This digital study was evaluated with the assistance of Computer-Aided Detection. COMPARISON FILM: Yes 08/11/11 [facility] 03/20/10 [facility] FINDINGS: Mammographically, the breast tissue has scattered fibroglandular densities (approximately 25% - 50% glandular). There are no dominant masses, suspicious micro calcifications or areas of architectural distortion. Procedure Note Sai Stokes DO - 12/27/2012 XR MAMMO BILAT SCREEN FFDM [G0202.0] CLINICAL HISTORY: This is an asymptomatic 52 y.o. patient. INDICATION FOR EXAM: Mammogram Screening. TECHNIQUE: CC & MLO views were obtained. This digital study was evaluatedwith the assistance of Computer-Aided Detection. COMPARISON FILM: Yes 08/11/11 [facility] 03/20/10 [facility] FINDINGS: Mammographically, the breast tissue has scatteredfibroglandular densities (approximately 25% - 50% glandular). There areno dominant masses, suspicious micro calcifications or areas ofarchitectural distortion. IMPRESSION: There is no radiographic evidence for malignancy. Recommendannual mammograms. A lay language report of this examination will be provided to the patient. MAMMOGRAM ASSESSMENT: ACR 1 Negative Garth Delgado MD MAMMO Final Re sult * (ABNORMAL) LIPID PANEL W REFLEX MEASURED LDL (08/12/2011 7:50 AM CDT) CHOLESTEROL,TOTAL 139 110 - 199 mg/dL [facility] TRIGLYCERIDES 182(H) <150 mg/dL [facility] HDL CHOLESTEROL 33(L) >40 mg/dL [facility] CHOL/HDL RATIO 4.21 <4.51 [facility] LDL CHOLESTEROL 70 <131 mg/dL [facility] PATIENT STATUS Fasting [facility] Blood specimen (specimen) BLOOD SPECIMEN / Unknown 08/12/2011 7:50 AM CDT 08/12/2011 7:45 AM CDT Garth Delgado MD CHEMISTRY Final Re sult Performing Organization Address City/State/[facility] Co de Phone Number [facility] [address] [place] [address] from Last 3 Months or Most Recently Relevant to Health Maintenance Insurance [facility] Care Teams Hand Packager Relationship Specialty Start Date End Date Pcp, No . PCP - General 12/25/13
--- OUTSIDE RECORDS SUMMARY | 2024-11-07 08:21 | XMS_ITS ---
Author Organization [facility] Address [address] [place] [address] Care Team Providers Care Tow Truck Driver Name Role Phone Unavailable Unavailable Unavailable Surgery Details Not on file Complications Check Surgery Details section. Procedure Estimated Blood Loss Check Surgery Details section. Procedure Findings Check Surgery Details section. Procedure Specimens Taken Check Surgery Details section.
== END 2024-11-03 07:47 | disposition home or self-care (01) ==
LOC: NFLDREF 11-07 08:19
PROVIDERS: PCP Internal Medicine; Referring Provider Internal Medicine; Visit Provider Internal Medicine
DX: R73.03 Prediabetes (principal)
CPT/HCPCS: 82947

== ENCOUNTER 2024-12-20 14:53 | Outpatient (CLI) | payer MEDICARE, BC, SELFPAY | END 2024-12-20 14:54 | disposition home or self-care (01) | PROVIDERS: PCP Internal Medicine; Visit Provider Internal Medicine | DX: Z13.820 Encounter for screening for osteoporosis (principal); Z78.0 Asymptomatic menopausal state | CPT/HCPCS: 77080 ==

== ENCOUNTER 2025-02-01 16:03 | Outpatient (CLI) | payer MEDICARE, BC, SELFPAY | END 2025-02-01 16:04 | disposition home or self-care (01) | LOC: NFLDREF 02-04 11:42 | PROVIDERS: PCP Internal Medicine; Referring Provider Internal Medicine; Visit Provider Internal Medicine | DX: Z11.59 Encounter for screening for other viral diseases (principal); Z78.9 Other specified health status | CPT/HCPCS: 86765 ==

== ENCOUNTER 2025-03-16 08:12 | Outpatient (CLI) | payer MEDICARE, BC, SELFPAY ==
--- NOTE | 2025-03-16 08:15 | CRLHL7_ITS ---
For Patients: As a result of the Century Cures Act, medical imaging exams and procedure reports are released immediately into your electronic medical record. You may view this report before your referring provider. If you have questions, please contact your health care provider. INDICATION: BILATERAL SCREENING MAMMOGRAM, ASYMPTOMATIC 64 Y/O FEMALE COMPARISON: 12/28/23, 10/19/22, 03/19/21 TECHNIQUE: CC and MLO views were obtained. These mammographic images have been obtained using full-field digital technique. These mammographic images were interpreted with the benefit of computer aided detection and tomosynthesis. BREAST COMPOSITION: The breasts are almost entirely fatty. FINDINGS: No suspicious findings. ASSESSMENT: BI-RADS 1 Negative RECOMMENDATION: Annual screening mammogram. A lay language report of this examination will be provided to the patient. Dictated by: Ab Sotelo MD @ 03/22/2025 13:19:24 (Electronically Signed)
== END 2025-03-16 08:13 | disposition home or self-care (01) ==
LOC: MAMMO 08:12
PROVIDERS: PCP Internal Medicine; Visit Provider Internal Medicine
DX: Z12.31 Encounter for screening mammogram for malignant neoplasm of breast (principal)
CPT/HCPCS: 77063; 77067

== ENCOUNTER 2025-09-17 14:02 | Outpatient (CLI) | payer MEDICARE, BC, SELFPAY ==
[2025-09-19 22:44] LABS: HPV Source Cervix
[2025-09-24 12:06] LABS: Pap Test Digital Imaging Done; Pap Test Reviewed by Pathologi Done
== END 2025-09-17 14:03 | disposition home or self-care (01) ==
PROVIDERS: PCP Internal Medicine; Visit Provider Physician Assistant
DX: Z12.4 Encounter for screening for malignant neoplasm of cervix (principal)
CPT/HCPCS: 87624; 87625; 88141; 88142; 88175

== ENCOUNTER 2025-09-19 12:10 | Outpatient (CLI) | payer MEDICARE, BC, SELFPAY ==
--- NOTE | 2025-09-19 12:15 | CRLHL7_ITS ---
For Patients: As a result of the Century Cures Act, medical imaging exams and procedure reports are released immediately into your electronic medical record. You may view this report before your referring provider. If you have questions, please contact your health care provider. INDICATION: postmenopausal bleeding (abnormal discharge one time per patient) COMPARISON: None. TECHNIQUE: 2D amos-scale and color Doppler images were acquired of the pelvis using a transabdominal and transvaginal approach. Transvaginal imaging performed to better visualize the endometrial stripe and ovaries. FINDINGS: Subserosal fundal fibroid measures 1.8 x 1.2 x 1.6 cm. Uterus measures 6.5 cm in length by 3.3 cm in AP diameter by 5.1 cm in transverse dimension. The myometrium has a heterogeneous echotexture. The endometrial lining measures 5 mm in composite thickness. The right ovary is not visualized due to bowel gas and the left ovary measures 2.2 x 1.4 x 1.5 cm. The left ovary demonstrates normal arterial and venous blood flow on color Doppler analysis. There are no suspicious fluid collections within the cul-de-sac. IMPRESSION: Endometrial thickness 5 millimeters. Dictated by Ab Sotelo MD @ 09/19/2025 12:57:50 PM (Electronically Signed)
== END 2025-09-19 12:11 | disposition home or self-care (01) ==
LOC: US 12:10
PROVIDERS: PCP Internal Medicine; Visit Provider Physician Assistant
DX: N95.0 Postmenopausal bleeding (principal); R93.89 Abnormal findings on diagnostic imaging of other specified body structures
CPT/HCPCS: 76830; 76856

== ENCOUNTER 2025-11-05 06:20 | Day surgery (SDC) | payer MEDICARE, BC, SELFPAY ==
[2025-11-05] VITALS (8 sets, daily range): BP systolic 143–176; BP diastolic 65–78; PULSE 71–79; RESP 16–20; TEMP 36.9; O2SAT 98–100; BMI 32.3
[2025-11-05] MEDS: ETHYL CHLORIDE 1 APPLICATION 1 APPLIC TOPICAL (06:50)
[2025-11-05] MEDS: BUPIVACAINE 0.5% 30 ML INJECTION (06:50)
--- NOTE | 2025-11-05 07:31 | P.ORPRC_ITS ---
Procedure Note Date of procedure: 11/05/25 Procedure: PREOPERATIVE DIAGNOSIS: 1. Right ring finger flexor tenosynovitis - trigger finger POSTOPERATIVE DIAGNOSIS: 1. Right ring finger flexor tenosynovitis - trigger finger PROCEDURE: 1. Right ring finger flexor tendon sheath open release (A1 tuan) SURGEON: Dawood Wilson MD. SUPERVISOR LAST MODEL DEPARTMENT: Efrain Jean Baptiste PA-C ANESTHESIA: Local anesthetic 4ml via 50:50 mixture of 1% Lidocaine with epi and 0.5% marcaine plain EBL: 2mL IMPLANTS: None TOURNIQUET: None COMPLICATIONS: None evident INDICATIONS: The patient is a pleasant 65yo Female who has experienced right ring finger catching/triggering for number of months. It has progressively gotten worse. Given the failure of nonoperative management, and how this affects daily life, surgery was recommended. DESCRIPTION OF PROCEDURE: Following a thorough discussion of risks, benefits, and alternatives consent was obtained and the operative digit(s) was marked. The patient was brought to the operating room and placed supine on the operating table. Local anesthesia induction was undertaken in preop holding. No antibiotics were administered as this was planned to be a local case only. Proper time-out was performed identifying proper patient, site, and procedure. The operative extremity was prepped and draped in the appropriate sterile fashion using ChloraPrep. An incision was made on the palmar surface of the hand overlying the MCP joint region of the appropriate digit(s) respecting the palmar creases being cautious not to cross these perpendicularly. Sharp incision through the skin, and blunt dissection through subcutaneous tissue allowing protection of crossing neurologic structures. The A1 tuan was visualized directly. It was incised sharply with a 15 blade. It was released completely from its distal to proximal extent under direct visualization. The tendon was inspected and found to be mildly striated consistent with some friction. Otherwise, it was intact. The tendon was removed out of the wound, and further inspected. The patient was asked to manually flex and extend the digits and showed no further catching. The catching, which was visualized initially, was no longer evident with reproduction of a manual fist and relaxation. Closure was performed with 4-O nylon in interrupted fashion. Soft dressings were applied, and the patient was transferred to the recovery room in stable condition. PLAN: 1. Encourage elevation of the operative extremity. 2. Range of motion of the fingers and hand/wrist as tolerated. 3. Ibuprofen/acetaminophen and/or oxycodone as needed for pain control. 4. Follow up with PA visit in 12-16 days for wound check and suture removal.
[2025-11-05] MEDS: BACITRACIN OINTMENT BULK TUBE 1 APPLIC TOPICAL (07:34)
== END 2025-11-05 08:01 | disposition home or self-care (01) ==
LOC: OR 06:22
PROVIDERS: PCP Internal Medicine; Visit Provider Orthopaedic Surgery Sports Medicine
PROC: (CPT 26055; principal; 2025-11-05 07:15)
DX: M65.341 Trigger finger, right ring finger (principal); M65.841 Other synovitis and tenosynovitis, right hand
CPT/HCPCS: 26055; J0665

== ENCOUNTER 2025-11-26 07:50 | Outpatient (CLI) | payer MEDICARE, BC, SELFPAY | END 2025-11-26 07:51 | disposition home or self-care (01) | LOC: NFLDREF 11-27 14:53 | PROVIDERS: PCP Internal Medicine; Referring Provider Internal Medicine; Visit Provider Internal Medicine | DX: R73.03 Prediabetes (principal) | CPT/HCPCS: 82947 ==